=== PATIENT | male | born 1990 | race Caucasian/White ===

== ENCOUNTER 2017-09-06 23:46 | Emergency (ER) | payer SELFPAY ==
[2017-09-07] MEDS ORDERED: ONDANSETRON PF 4 MG/2 ML VIAL. IV ×2 (00:30)
[2017-09-07] MEDS: ONDANSETRON ODT 4 MG TAB.RAPDIS. PO ×2 (00:38)
[2017-09-07 00:52] LABS: AGAP ISTAT 17 mmol/L (6-14); BUN ISTAT 16 mg/dL (8-26); CHLORIDE ISTAT 105 mmol/L (98-110); CREATININE ISTAT 0.9 mg/dL (0.5-1.4); GLUCOSE ISTAT 112 mg/dL (70-99); HEMATOCRIT ISTAT 41 % (37-52); HEMOGLOBIN ISTAT 13.9 g/dL (14-18); POTASSIUM ISTAT 3.6 mmol/L (3.5-5.0); SODIUM ISTAT 142 mmol/L (135-145); TOT CO2 ISTAT 25 mmol/L (23-32)
== END 2017-09-07 01:10 | disposition home or self-care (01) ==
LOC: ER 23:46
DX: R11.2 Nausea with vomiting, unspecified (principal); R19.7 Diarrhea, unspecified; F17.200 Nicotine dependence, unspecified, uncomplicated; I10 Essential (primary) hypertension; Z90.49 Acquired absence of other specified parts of digestive tract; Z71.6 Tobacco abuse counseling; Z88.5 Allergy status to narcotic agent
CPT/HCPCS: 36415; 80047; 85014; 85018; 99283; Q0162

== ENCOUNTER 2017-11-05 18:17 | Emergency (ER) | payer SELFPAY | END 2017-11-05 19:00 | disposition home or self-care (01) | LOC: ER 18:17 | DX: L02.31 Cutaneous abscess of buttock (principal); I10 Essential (primary) hypertension; Z88.5 Allergy status to narcotic agent | CPT/HCPCS: 10060; 99283 ==